=== PATIENT | male | born 2000 | race Caucasian/White ===

== ENCOUNTER 2022-05-10 12:48 | Emergency (ER) | payer BC | END 2022-05-10 15:15 | disposition home or self-care (01) | LOC: JD.ED 12:48 | DX: S01.312A Laceration without foreign body of left ear, initial encounter (principal); F10.10 Alcohol abuse, uncomplicated; Z72.0 Tobacco use; Y04.0XXA Assault by unarmed brawl or fight, initial encounter | CPT/HCPCS: 36415; 80053; 80306; 80307; 81003; 84443; 85025; 99283; 99284 ==

== ENCOUNTER 2022-08-16 19:12 | Emergency (ER) | payer BC | END 2022-08-16 20:24 | disposition left against medical advice (07) | LOC: JD.ED 19:12 | DX: Z53.21 Procedure and treatment not carried out due to patient leaving prior to being seen by health care provider (principal) ==

== ENCOUNTER 2022-08-17 07:36 | Emergency (ER) | payer BC | END 2022-08-17 09:07 | disposition home or self-care (01) | LOC: JD.ED 07:36 | DX: S93.402A Sprain of unspecified ligament of left ankle, initial encounter (principal); S80.212A Abrasion, left knee, initial encounter; X50.1XXA Overexertion from prolonged static or awkward postures, initial encounter; Y93.67 Activity, basketball | CPT/HCPCS: 73610-26-LT; 73610-LT; 99283 ==